=== PATIENT | male | born 1950 | race Caucasian/White ===

== ENCOUNTER 2018-07-02 15:48 | Inpatient (IN) | payer BC, MEDICARE ==
[~2018-07-02 15:48] MED LIST: ASPIRIN 81 MG PO ONE
[2018-07-02] MEDS ORDERED: HEPARIN SODIUM,PORCINE 5,000 UNIT/ML 1 ML VIAL IV PRN (15:58)
[2018-07-02] MEDS ORDERED: NITROGLYCERIN SL TABS 0.4 MG TAB SUBLINGUAL PRN ×2 (15:58→18:50)
[2018-07-02] MEDS ORDERED: SODIUM CHLORIDE 0.9% 1,000 ML IV STA (15:58)
[2018-07-02] MEDS ORDERED: ASPIRIN 81 MG PO STA (15:58)
[2018-07-02] MEDS ORDERED: HEPARIN SODIUM,PORCINE 5,000 UNIT/ML 1 ML VIAL IV ONE (15:58)
--- NOTE | 2018-07-02 16:04 | ED ---
General Adult HPI - General Chief complaint: Chest Pain Stated complaint: Dr Sent/Chest tightness Time Seen by Provider: 07/02/18 15:54 Source: patient, RN notes reviewed, old records reviewed Mode of arrival: ambulatory Limitations: no limitations - History of Present Illness Initial comments: This is a 68-year-old male the ER presenting with chest pain today. Patient has history of hypertension, heart disease, cardiomyopathy. Patient presents today for evaluation regarding the cause of chest pain. Patient states he has family doctor and sent to ER for evaluation. Patient denies any fevers cough or congestion. Patient has had shortness of breath with diaphoresis. Patient continues to chest pain currently here in the emergency room - Related Data Home Medications Medication Instructions Recorded Confirmed Atorvastatin [Lipitor] 10 mg PO DAILY 09/03/15 07/02/18 Lisinopril [Prinivil] 10 mg PO DAILY 09/03/15 07/02/18 Aspirin EC [Ecotrin Low Dose] 81 mg PO DAILY 07/02/18 07/02/18 Furosemide [Lasix] 20 mg PO DAILY 07/02/18 07/02/18 Metoprolol Tartrate [Lopressor] 25 mg PO BID 07/02/18 07/02/18 Travoprost [Travatan Z 0.004%] 1 drop BOTH EYES HS 07/02/18 07/02/18 Allergies Allergy/AdvReac Type Severity Reaction Status Date / Time No Known Allergies Allergy Verified 07/02/18 16:08 Review of Systems ROS Statement: Those systems with pertinent positive or pertinent negative responses have been documented in the HPI. ROS Other: All systems not noted in ROS Statement are negative. Past Medical History Past Medical History: Hypertension, Renal Disease Additional Past Medical History / Comment(s): heart murmur,sob,prostate ca 2012 , kidney stones History of Any Multi-Drug Resistant Organisms: None Reported Past Surgical History: Hernia Repair, Prostate Surgery Additional Past Surgical History / Comment(s): prostatectomy, sheila inguinal hernia repair,lithotripsy Additional Past Anesthesia/Blood Transfusion Reaction / Comment(s): woke up during surgery in the past Past Psychological History: No Psychological Hx Reported Smoking Status: Former smoker Past Alcohol Use History: None Reported Past Drug Use History: None Reported - Past Family History Sister(s) Family Medical History: Cancer Additional Family Medical History / Comment(s): breast Mother Family Medical History: Cancer Additional Family Medical History / Comment(s): breast Father Family Medical History: Cancer Additional Family Medical History / Comment(s): prostate General Exam Limitations: no limitations General appearance: alert, in no apparent distress Head exam: Present: atraumatic, normocephalic, normal inspection Eye exam: Present: normal appearance, PERRL, EOMI. Absent: scleral icterus, conjunctival injection, periorbital swelling ENT exam: Present: normal exam, mucous membranes moist Neck exam: Present: normal inspection. Absent: tenderness, meningismus, lymphadenopathy Respiratory exam: Present: normal lung sounds bilaterally. Absent: respiratory distress, wheezes, rales, rhonchi, stridor Cardiovascular Exam: Present: regular rate, normal rhythm, normal heart sounds. Absent: systolic murmur, diastolic murmur, rubs, gallop, clicks GI/Abdominal exam: Present: soft, normal bowel sounds. Absent: distended, tenderness, guarding, rebound, rigid Extremities exam: Present: normal inspection, full ROM, normal capillary refill. Absent: tenderness, pedal edema, joint swelling, calf tenderness Back exam: Present: normal inspection Neurological exam: Present: alert, oriented X3, CN II-XII intact Psychiatric exam: Present: normal affect, normal mood Skin exam: Present: warm, dry, intact, normal color. Absent: rash Course Vital Signs 07/02/18 15:50 Temperature 97.9 F Pulse Rate 72 Respiratory 18 Rate Blood Pressure 153/85 O2 Sat by Pulse 97 Oximetry - Reevaluation(s) Reevaluation #1: 07/02/18 16:15 The patient's bid writer this patient is coming from office with both abnormal EKG she is, chest pain and inferior wall high. Hypokinesis on ultrasound Reevaluation #2: 07/02/18 16:15 Patient's no acute distress here in emergency room EKG Findings - EKG Comments: EKG Findings:: EKG shows sinus rhythm rate of 73, MT 144, QRS 132, QTc 471 Medical Decision Making - Medical Decision Making 68 male the ER for evaluation, this patient was essay for evasive chest pain history of heart disease history of cardiomyopathy. Patient will be admitted for laboratory tester for evaluation of cause of chest pain Critical Care Time Critical Care Time: Yes Total Critical Care Time: 31 Disposition Clinical Impression: Chest pain, Unstable angina pectoris Disposition: ADMITTED IP TO THIS HOSP Condition: Fair Is patient prescribed a controlled substance at d/c from ED?: No Referrals: Panchito Rivero MD [Primary Care Provider] - 1-2 days
[2018-07-02 16:13] LABS: Basophils % (A) 0 %; Eosinophils # (A) 0.2 k/uL (0-0.7); Eosinophils % (A) 3 %; HCT 42.6 % (39.0-53.0); HGB 14.6 gm/dL (13.0-17.5); Lymphocytes # (A) 2.3 k/uL (1.0-4.8); Lymphocytes % (A) 31 %; MCH 29.8 pg (25.0-35.0); MCHC 34.3 g/dL (31.0-37.0); Mean Platelet Volume 8.8; Monocytes # (A) 0.7 k/uL (0-1.0); Monocytes % (A) 9 %; Neutrophils # (A) 4.1 k/uL (1.3-7.7); Neutrophils % (A) 54 %; Platelet Count 204 k/uL (150-450); RBC 4.89 m/uL (4.30-5.90); RDW 13.6 % (11.5-15.5); WBC 7.6 k/uL (3.8-10.6)
[2018-07-02] MEDS ORDERED: LIDOCAINE 1% INJ 10MG/ML (20 ML MDV) ONE ×2 (16:14→17:30)
[2018-07-02] MEDS ORDERED: fentaNYL (PF) 50 MCG/ML 2 ML AMP ONE (16:15)
[2018-07-02] MEDS ORDERED: MIDAZOLAM 2 MG/2 ML VIAL ONE (16:15)
[2018-07-02] MEDS ORDERED: ASPIRIN 81 MG ONE (16:16)
[2018-07-02] MEDS ORDERED: ASPIRIN 81 MG PO ONE (16:20)
[2018-07-02 16:22] LABS: INR 1.2 (<1.2); Partial Thromboplastin Time 23.6 sec (22.0-30.0); Prothrombin Time 11.4 sec (9.0-12.0)
[2018-07-02] MEDS ORDERED: SODIUM CHLORIDE 0.9% 500 ML IV ONE (16:22)
[2018-07-02 16:25] LABS: Albumin 4.3 g/dL (3.5-5.0); Calcium 9.5 mg/dL (8.4-10.2); Potassium 4.2 mmol/L (3.5-5.1); Total Bilirubin 0.7 mg/dL (0.2-1.3); Total Protein 6.7 g/dL (6.3-8.2)
[2018-07-02] MEDS ORDERED: MIDAZOLAM 2 MG/2 ML VIAL IV ONE (16:40)
[2018-07-02] MEDS ORDERED: LIDOCAINE 1% INJ 10MG/ML (20 ML MDV) SQ ONE ×2 (16:42→17:39)
[2018-07-02] MEDS: fentaNYL (PF) 50 MCG/ML 2 ML AMP IV ONE ×3 (16:43→17:39)
[2018-07-02 17:04] LABS: Creatine Kinase MB 8.1 ng/mL (0.0-2.4)
[2018-07-02 17:05] LABS: Troponin I 1.23 ng/mL (0.000-0.034)
[2018-07-02] MEDS: LIDOCAINE 1% INJ 10MG/ML (20 ML MDV) SQ ONE ×2 (17:38→18:30)
[2018-07-02] MEDS ORDERED: BIVALIRUDIN BOLUS 250 MG/50 ML IV ONE (17:43)
[2018-07-02] MEDS ORDERED: BIVALIRUDIN 250 MG in SODIUM CHLORIDE 0.9% 50 ML IV ONE (17:44)
[2018-07-02] MEDS ORDERED: IOPAMIDOL-370 125ML BTL INJ ONE ×2 (17:58)
[2018-07-02] MEDS ORDERED: IOPAMIDOL-370 100ML BTL INJ ONE ×3 (18:21→18:35)
[2018-07-02] MEDS ORDERED: TICAGRELOR 90 MG TAB ONE (18:34)
[2018-07-02] MEDS ORDERED: TICAGRELOR 90 MG TAB PO ONE (18:37)
[2018-07-02] MEDS ORDERED: ZOLPIDEM 5 MG TAB PO PRN (18:50)
[2018-07-02] MEDS ORDERED: RX INFO: IV CONTRAST WAS GIVEN 1 EACH MISC MISCELLANE PRN (18:50)
[2018-07-02] MEDS ORDERED: ATROPINE SULFATE 0.1 MG/ML 10ML SYRINGE IV PRN (18:50)
[2018-07-02] MEDS ORDERED: MAG HYDROX/AL HYDROX/SIMETH 30 ML CUP PO PRN (18:50)
[2018-07-02] MEDS: HEPARIN SOD,PORK IN 0.45% NACL 25,000 UNIT in 0.45% NACL 1 500ML.BAG IV SCH (19:56)
--- NOTE | 2018-07-02 20:31 | CONS ---
CONSULTATION CHIEF COMPLAINT: Chest pain. HISTORY OF PRESENT ILLNESS: Leander is a 68-year-old gentleman with history of hypertrophic cardiomyopathy, hypertension, dyslipidemia, who presented to my office today complaining of intermittent episodes of chest pressure. He stated that he developed this chest discomfort and shortness of breath with activity over the last several days. It came on initially while he was mowing the lawn and subsequently even with very minimal activity. He had a moderate intensity shortness of breath and mild intensity chest pain and the pain had radiated to the right arm. I did an EKG on him that showed sinus rhythm with poor R-wave progression suggestive of anteroseptal [place] with right bundle branch block and extensive new ST-T wave changes involving anterolateral leads. I performed an echocardiogram on him that showed new apical hypokinesis. Due to this, I advised him to undergo emergent cardiac catheterization. The patient had been explained of risks, benefits and alternatives. I brought him from my office to the ER and from there to the lab systems analyst. PAST MEDICAL HISTORY: Significant for hypertrophic cardiomyopathy, hypertension, dyslipidemia. ALLERGIES: As charted. FAMILY HISTORY: Negative for premature coronary artery disease. SOCIAL HISTORY: Negative for current smoking, ETOH abuse or history of drug abuse. REVIEW OF SYSTEMS: HEENT is unremarkable. Cardiac as described above. Respiratory as described above. GI negative. Genitourinary: Negative. Allergy/Immunology: Negative. Skin: Negative. Musculoskeletal significant for arthritis. Psychosocial negative. Derm: Negative. Constitutional: Negative. Oncological: Negative. ENDOCRINE: Negative. PSYCHOSOCIAL: Negative. Rest of the system review is not relevant. EXAM: Comfortable at rest. Vital signs are stable. There is no jugular venous distention. Carotid upstroke is normal. There is no bruit. Chest exam reveals good air entry bilaterally. Heart exam reveals first and second heart sounds and S4 is soft. S4 is heard. Abdomen is soft. Exam of extremities did not reveal any edema. Peripheral pulses are felt. Femoral pulses are palpable and normal. Radial pulses are normal. His home medications include Lipitor 10 mg daily, lisinopril 10 mg daily, metoprolol 25 mg daily, aspirin 81 mg daily, Lasix 20 mg daily. EKG is as described above. Echocardiogram shows apical hypokinesis. ASSESSMENT: 1. Unstable angina. 2. Hypertrophic cardiomyopathy. 3. Hypertension. 4. Dyslipidemia. PLAN: The patient will undergo emergent cardiac catheterization with a view to performing angioplasty. He understands risks benefits. Labs will be done in the ER. MARK / NGHIAN: [id number] /
--- NOTE | 2018-07-02 20:37 | CC ---
CARDIAC CATHETERIZATION REPORT INDICATION: Unstable angina. PROCEDURE NOTE: After obtaining informed consent, left heart catheterization and coronary angiogram were performed via the right femoral artery using standard Georgette catheters. The patient tolerated the procedure well without any obvious immediate complications. A femoral angiogram was performed. The patient received moderate conscious sedation. Total sedation time was 15 minutes. FINDINGS: HEMODYNAMICS: Left ventricular end-diastolic pressure is 12 to 14 mm. There is no significant gradient across aortic valve. LEFT VENTRICULOGRAM: Left ventriculogram is not performed. ANGIOGRAPHIC DATA: LEFT MAIN CORONARY ARTERY: 1. LEFT MAIN CORONARY ARTERY: Left main coronary artery is a normal-sized vessel and is free of stenosis. Divides into left anterior descending coronary artery and circumflex coronary artery. 2. CIRCUMFLEX CORONARY ARTERY and its branches are free of significant stenosis. 3. LEFT ANTERIOR DESCENDING CORONARY ARTERY: LAD is a large vessel that gives off large caliber diagonal branch and it is just proximal to the origin of the diagonal branch. He has a focal 95% stenosis. 4. RIGHT CORONARY ARTERY: Right coronary artery is a large dominant vessel that shows some moderate stenosis in the proximal part. At its worst, it seems to be a 50-60% stenosis. CONCLUSIONS: 1. 90% stenosis involving the LAD just proximal to the origin of a large caliber diagonal branch. 2. 50-60% stenosis involving dominant right coronary artery. PLAN: Patient will undergo angioplasty with stent placement of the LAD. Dr. Teodora Hall the on-call stogie packer will perform this. MMODL / IJN: [id number] /
[2018-07-02] MEDS ORDERED: HYDROcodone/APAP 5-325MG 1 EACH TAB PO PRN (20:51)
[2018-07-02] MEDS ORDERED: ACETAMINOPHEN TAB 500 MG TAB PO PRN (20:51)
[2018-07-02] MEDS ORDERED: ALPRAZolam 0.25 MG TAB PO PRN (20:51)
[2018-07-02] MEDS ORDERED: LISINOPRIL 5 MG TAB PO SCH (21:00)
[2018-07-02] MEDS: LATANOPROST 0.005% OPHTH DROPS 2.5 ML BTL BOTH EYES SCH (21:31)
[2018-07-02] MEDS: ATORVASTATIN 80 MG TAB PO SCH (21:31)
[2018-07-02] MEDS: SODIUM CHLORIDE 0.9% 1,000 ML IV SCH (21:34)
--- NOTE | 2018-07-02 22:19 | HP ---
HISTORY AND PHYSICAL CHIEF COMPLAINT: Chest discomfort. HISTORY OF PRESENT ILLNESS: This 68-year-old gentleman with a past medical history of multiple medical problems including hypertension, renal disease, history of cardiac murmur, history of nephrolithiasis, hernia repair being followed by Dr. Rivero in the outpatient setting, was complaining of chest pressure/discomfort for the last 2 days with increasing difficulty. The patient came to [facility]. Troponins elevated. EKG showed ST-T changes. Patient underwent cardiac catheterization by cardiology with LAD stenting, also. There is no history of fever, rigors or chills. No history of headache, loss of consciousness . No history of hematochezia, melena or shortness of breath. PAST MEDICAL HISTORY: Hypertension, renal disease, heart murmurs, hernia repair, prostate surgery. MEDICATIONS ARE: 1. Travatan 0.34497% 1 drop both eyes q.h.s. 2. Lopressor 25 mg b.i.d. 3. Prinivil 10 mg daily. 4. Lasix 20 mg daily. 5. Lipitor 10 mg daily. 6. Ecotrin 81 mg daily. ALLERGIES: None. FAMILY HISTORY: History of breast cancer in the family. SOCIAL HISTORY: Previous history of smoking. Occasional alcohol intake. REVIEW OF SYSTEMS: ENT: No diminished vision. No diminished hearing. CARDIOVASCULAR system: As mentioned earlier. RESPIRATION: As mentioned earlier. GI: No nausea or vomiting. no dysuria or hematuria. NERVOUS SYSTEM: No numbness or weakness. ALLERGY/IMMUNOLOGY: As mentioned earlier. HEMATOLOGY/ONCOLOGY: No history of anemia. ENDOCRINE: No history of diabetes or hypothyroidism. CONSTITUTIONAL: As mentioned earlier. DERMATOLOGY: Negative. RHEUMATOLOGY: Negative. PSYCHIATRY: As mentioned earlier. PHYSICAL EXAMINATION: GENERAL: The patient is alert, oriented x3. VITAL SIGNS: Blood pressure 140/58, respirations 18, temperature 97.9, pulse ox 97% on 2 L. HEENT is conjunctivae normal. Oral mucosa moist. Neck is no jugular venous distention. No carotid bruit. No lymph node enlargement. CARDIOVASCULAR SYSTEM: S1, S2. S3 present. RESPIRATORY: Breath sounds diminished in the bases. No rhonchi. No crackles. ABDOMEN: Soft, nontender. No mass palpable. LEGS: No edema and no swelling. CENTRAL NERVOUS SYSTEM: Higher functions as mentioned earlier. Moves all 4 limbs. No focal motor or sensory deficits. LYMPHATICS: No lymph nodes palpable in the neck, axillae or groin. SKIN no ulcer, rash or bleeding. LABS: CBC within normal limits. INR 1.2. Troponin is 1.23. EKG ST-T changes. ASSESSMENT: 1. Acute non ST-segment elevation infarction status post cardiac catheterization and LAD stenting. 2. History of hypertension. 3. History of nephrolithiasis. 4. History of renal disease. 5. History of hernia repair. 6. History of prostate surgery. 7. Remote history of nicotine dependence. RECOMMENDATIONS AND DISCUSSION: This 68-year-old gentleman who presented with multiple complex medical issues, we will monitor the patient closely, continue the current medications, management and symptomatic treatment. Otherwise, at this time, I recommend antiplatelet agents , beta blockers and RADHA inhibitors. Closely follow with Cardiology. DVT prophylaxis. Guarded prognosis because of multiple complex medical issues. Further recommendations to follow. A copy of dictating is forwarded to Dr. Rivero who is the primary physician. MMODL / IJN: [id number] / CHRISTI
--- NOTE | 2018-07-02 22:34 | PTCA ---
PERCUTANEOUSTRANS CORORONARY ANGIOGRAPHY DATE OF SERVICE: 07/02/2018. PROCEDURE: Percutaneous transluminal coronary angioplasty and stenting of a complex bifurcation lesion involving left anterior descending coronary artery in its midportion and a major diagonal branch. Drug-eluting stent was deployed in the left anterior descending and kissing balloon technique was used to dilate both vessels. Provisional stenting was performed without need for additional stent in the diagonal. PERFORMED BY: Dr. Teodora Hall. Moderate conscious sedation time was 60 minutes. CLINICAL INFORMATION: Mr. Leander Hoffmann is a patient of Dr. Mckee, who was evaluated by him in the office today with new onset chest pain and EKG changes suggestive of ischemia in the LAD distribution. He has history of hypertension and probably hyperlipidemia and hypertrophic cardiomyopathy. He underwent cardiac cath performed by Dr. Mckee from the right femoral approach which revealed a 95% LAD lesion in the midportion just after a major septal branch and also involving a diagonal branch at its origin. The patient was advised percutaneous intervention after discussion regarding a surgical option. I spoke to the patient and family, explained to them the risks involved. They were both receptive and wished to proceed with the PCI. PROCEDURE NOTE: The existing 6-Kittitian introducer in the right femoral artery was exchanged over a wire under local anesthesia and strict aseptic precautions to an 8-Kittitian introducer. I used a standard left Georgette guide catheter of 8-Kittitian caliber to cannulate the left coronary artery. A Whisper wire was used to cross the lesion and wire was kept in the diagonal branch. An additional whisper wire was used to cross the lesion in the LAD and wire was kept distally. I performed predilatation of the LAD lesion with a 2.5 caliber 12 mm NC Trek balloon at 12 atmospheres for 30 seconds and an 8 mm 2.25 caliber NC Trek balloon was used to dilate the diagonal lesion for 30 seconds. I then deployed a 2.75 caliber 15 mm long Xience stent in the diagonal branch and the and this stent was deployed at 12 atmospheres. I then used a 3.0 caliber 8 mm NC Trek balloon and pre- dilated the proximal half of the stent to perform proximal vessel optimization and this balloon was dilated up to 12 atmospheres. I then performed a wire exchange. A new wire was advanced and positioned in the diagonal branch from the distal aspect at the site of bifurcation. I then advanced a 2.25 caliber 12 mm NC Trek balloon into the diagonal branch and a 2.5 caliber 12 mm balloon into the LAD. Both balloons were positioned and a kissing balloon dilatation was performed. Initially I dilated the diagonal balloon and about 10 seconds later, I dilated the LAD balloon and kissing balloon dilatation was performed for 45 seconds. The patient had mild chest discomfort and significant new EKG changes. Excellent angiographic result was achieved without complication. There was brisk flow in both vessels noted without any compromise. Excellent angiographic result was achieved without complication. The patient received Angiomax bolus and infusion as per protocol. He also received 180 mg of Brilinta. The sheath was then taken out and Perclose device used to secure hemostasis and he was sent to the room in a stable condition. Results were discussed with the patient and . I expect the patient to be discharged if he remains stable in the next 24 hours. MMBOB / NGHIAN: [id number] /
[2018-07-02 23:55] LABS: Creatine Kinase MB 6.5 ng/mL (0.0-2.4); Troponin I 1.42 ng/mL (0.000-0.034)
[2018-07-03 01:28] LABS: Appearance,Urine Clear (Clear); Bilirubin,Urine Negative (Negative); Blood,Urine Negative (Negative); Color,Urine Yellow; Glucose,Urine (UA) Negative (Negative); Ketones,Urine Negative (Negative); Leukocyte Esterase,Urine Negative (Negative); Nitrite,Urine Negative (Negative); Protein,Urine Negative (Negative); Urobilinogen,Urine <2.0 mg/dL (<2.0)
[2018-07-03 01:33] LABS: Specific Gravity,Urine 1.046 (1.001-1.035)
[2018-07-03 04:34] LABS: Basophils % (A) 0 %; Eosinophils # (A) 0.1 k/uL (0-0.7); Eosinophils % (A) 2 %; HCT 37.6 % (39.0-53.0); HGB 12.8 gm/dL (13.0-17.5); Lymphocytes % (A) 16 %; MCH 29.5 pg (25.0-35.0); MCHC 34.1 g/dL (31.0-37.0); MCV 86.6 fL (80.0-100.0); Mean Platelet Volume 9.2; Monocytes # (A) 0.5 k/uL (0-1.0); Monocytes % (A) 8 %; Neutrophils # (A) 4.4 k/uL (1.3-7.7); Neutrophils % (A) 73 %; Platelet Count 170 k/uL (150-450); RBC 4.34 m/uL (4.30-5.90); RDW 13.5 % (11.5-15.5)
[2018-07-03 04:48] LABS: Anion Gap 5 mmol/L; Blood Urea Nitrogen 22 mg/dL (9-20); Calcium 8.7 mg/dL (8.4-10.2); Carbon Dioxide 24 mmol/L (22-30); Chloride 108 mmol/L (98-107); Cholesterol 118 mg/dL (<200); Glucose 104 mg/dL (74-99); HDL Cholesterol 30 mg/dL (40-60); LDL Cholesterol,Calculated 58 mg/dL (0-99); Potassium 4.4 mmol/L (3.5-5.1); Sodium 137 mmol/L (137-145); Triglycerides 150 mg/dL (<150)
[2018-07-03 05:10] LABS: Creatine Kinase MB 7.6 ng/mL (0.0-2.4); Troponin I 1.62 ng/mL (0.000-0.034)
[2018-07-03] MEDS: PANTOPRAZOLE 40 MG TABLET PO SCH (06:16)
[2018-07-03] MEDS: TICAGRELOR 90 MG TAB PO SCH ×2 (08:11→21:32)
[2018-07-03] MEDS: LISINOPRIL 10 MG TAB PO SCH (08:11)
[2018-07-03] MEDS: ASPIRIN 81 MG PO SCH (08:11)
--- NOTE | 2018-07-03 08:19 | XR ---
EXAMINATION TYPE: XR chest 1V portable DATE OF EXAM: 07/03/2018 CLINICAL HISTORY: Difficulty breathing and CHF. TECHNIQUE: Single AP portable frontal view of the chest is obtained. COMPARISON: None FINDINGS: There is left basilar linear scarring and/or atelectasis. There is right apical scarring. No suspicious focal airspace opacity, pleural effusion, or pneumothorax is seen bilaterally. Cardiac silhouette size is within normal limits with atherosclerotic change in thoracic aorta. Osseous struct ures are intact. IMPRESSION: Right apical scarring and left basilar linear scarring and/or atelectasis. No evidence of overt failure.
[2018-07-03] MEDS ORDERED: ASPIRIN 325 MG TAB PO SCH (09:00)
[2018-07-03 09:53] VITALS: BMI 28.5
[2018-07-03] MEDS: SODIUM CHLORIDE 0.9% 1,000 ML IV SCH (13:08)
--- NOTE | 2018-07-03 15:21 | P.PN ---
Subjective Progress Note Date: 07/03/18 This is a 68-year-old gentleman with history of hypertrophic cardiomyopathy, hypertension, hyperlipidemia, who presented to the hospital with symptoms of chest pressure. An echo with Doppler study was performed which revealed new apical hypokinesia and patient was noted to have extensive ST-T wave changes on his EKG. For this reason he was taken to the cardiac catheterization lab by Dr. Mckee and subsequently underwent angioplasty and stenting of the LAD and diagonal branch by Dr. Wale Hall. Chest x-ray shows right apical scarring and left basilar linear scarring. Blood pressure 140/70 with a heart rate in the 70s, 94% on room air. White blood cell count 6.0, hemoglobin 12.8, platelet count 170. Sodium 137, potassium 4.4, BUN 22, creatinine 0.9. Objective - Vital Signs Vital signs: Vital Signs Temp 97.0 F L 07/03/18 11:54 Pulse 65 07/03/18 11:54 Resp 16 07/03/18 11:54 BP 148/77 07/03/18 11:54 Pulse Ox 97 07/03/18 11:54 Intake & Output 07/02/18 07/03/18 07/03/18 18:59 06:59 18:59 Intake Total 340 750 Output Total 400 Balance 340 350 Weight 91.626 kg 90.1 kg 90.1 kg Intake: IV 340 750 Sodium Chloride 0.9% 1, 750 000 ml @ 75 mls/hr IV . [id number] [facility] Rx#:[id number] Output: Urine 400 - Exam PHYSICAL EXAMINATION: GENERAL: 68-year-old gentleman in no acute distress at the time of my examination HEENT: Head is atraumatic, normocephalic. Pupils equal, round. Sclera anicteric. Conjunctiva are clear. Mucous membranes of the mouth are moist. Neck is supple. There is no elevated jugular venous pressure.] bruit is heard. HEART EXAMINATION: Heart S1, S2 normal. No murmur or gallop heard. CHEST EXAMINATION: Lungs are clear to auscultation and precussion. No chest wall tenderness is noted on palpation or with deep breathing. ABDOMEN: Soft, nontender. Bowel sounds are heard. No organomegaly noted. EXTREMITIES: 2+ peripheral pulses with no evidence of peripheral edema and no calf tenderness noted. Right groin ecchymotic, no hematoma, good distal pulse. NEUROLOGIC patient is awake, alert and oriented ?-3. . - Labs CBC & Chem 7: 07/03/18 04:22 07/03/18 04:22 Labs: Abnormal Lab Results - Last 24 Hours (Table) 07/02/18 07/02/18 07/02/18 Range/Units 15:55 15:55 15:55 Hgb (13.0-17.5) gm/dL Hct (39.0-53.0) % INR 1.2 H (<1.2) Chloride (98-107) mmol/L BUN 26 H (9-20) mg/dL Glucose (74-99) mg/dL Total Creatine Kinase 216 H (55-170) U/L CK-MB (CK-2) 8.1 H* (0.0-2.4) ng/mL Troponin I 1.230 H* (0.000-0.034) ng/mL Triglycerides (<150) mg/dL HDL Cholesterol (40-60) mg/dL Ur Specific Pillow (1.001-1.035) 07/02/18 07/03/18 07/03/18 Range/Units 22:56 00:45 04:22 Hgb (13.0-17.5) gm/dL Hct (39.0-53.0) % INR (<1.2) Chloride (98-107) mmol/L BUN (9-20) mg/dL Glucose (74-99) mg/dL Total Creatine Kinase (55-170) U/L CK-MB (CK-2) 6.5 H* 7.6 H* (0.0-2.4) ng/mL Troponin I 1.420 H* 1.620 H* (0.000-0.034) ng/mL Triglycerides (<150) mg/dL HDL Cholesterol (40-60) mg/dL Ur Specific Pillow 1.046 H (1.001-1.035) 07/03/18 07/03/18 Range/Units 04:22 04:22 Hgb 12.8 L (13.0-17.5) gm/dL Hct 37.6 L (39.0-53.0) % INR (<1.2) Chloride 108 H (98-107) mmol/L BUN 22 H (9-20) mg/dL Glucose 104 H (74-99) mg/dL Total Creatine Kinase (55-170) U/L CK-MB (CK-2) (0.0-2.4) ng/mL Troponin I (0.000-0.034) ng/mL Triglycerides 150 H (<150) mg/dL HDL Cholesterol 30 L (40-60) mg/dL Ur Specific Pillow (1.001-1.035) Assessment and Plan Plan: Assessment and plan #1 status post angioplasty and stenting of the LAD and diagonal #2 hypertrophic cardiomyopathy #3 hyperlipidemia #4 hypertension Plan EKG shows normal sinus rhythm with diffuse ST-T wave changes in the anterolateral leads. We will continue the patient on aspirin 81 mg daily, Lipitor 80 mg daily, lisinopril 10 mg daily, Brilinta 90 mg one tablet by mouth twice a day. Add a beta priti to the patient's medication regime. Activity as tolerated today. Plan for possible discharge home in 24 hours if stable. DNP note has been reviewed, I agree with a documented findings and plan of care. Patient was seen and examined.
[2018-07-03] MEDS: HEPARIN SOD,PORK IN 0.45% NACL 25,000 UNIT in 0.45% NACL 1 500ML.BAG IV SCH (15:26)
--- NOTE | 2018-07-03 17:44 | PN ---
PROGRESS NOTE DATE OF SERVICE: 07/03/2018 This 65-year-old gentleman who was admitted with acute non ST elevation myocardial infarction had cardiac catheterization, LAD stenting. No chest pain. No palpitations. No fever. Cardiology is following the patient closely. Chest x-ray showed some linear scarring and atelectasis. No shortness of breath. No hematochezia, melena. PHYSICAL EXAM: Alert and oriented x3. Pulse 65, blood pressure 140/77, respirations 16, temperature 97 degrees, pulse ox 96% on room air. HEENT: Conjunctivae normal. Oral mucosa moist. NECK: No jugular venous distention. No carotid bruits. No lymph node enlargement. CARDIOVASCULAR: S1, S2 muffled. No S3, S4. RESPIRATORY: Breath sounds diminished in the bases. No rhonchi. No crackles. ABDOMEN: Soft, nontender. LEGS: No edema. NERVOUS SYSTEM: No focal deficits. LABS: Hemoglobin 12.8. Sodium 137, troponin 1.620. ASSESSMENT: 1. Acute non ST-segment elevation myocardial infarction, status post cardiac catheterization and left anterior descending stenting. 2. History of hypertension. 3. History of nephrolithiasis. 4. History of renal disease. 5. History of hernia repair. 6. History of prostate surgery. 7. Remote history of nicotine dependence. RECOMMENDATIONS AND DISCUSSION: Recommend to continue current medical management. Continue with monitoring and symptomatic treatment. Otherwise at this time, I would recommend continue with the current medications, continue with beta blockers, antiplatelet agents, closely follow with Cardiology. Further recommendations to follow. MMODL / IJN: [id number] /
[2018-07-03] MEDS: ATORVASTATIN 80 MG TAB PO SCH (21:32)
[2018-07-03] MEDS: LATANOPROST 0.005% OPHTH DROPS 2.5 ML BTL BOTH EYES SCH (21:32)
[2018-07-03] MEDS: METOPROLOL TARTRATE 25 MG TAB PO SCH (21:33)
[2018-07-04] MEDS: PANTOPRAZOLE 40 MG TABLET PO SCH (06:00)
[2018-07-04 06:22] LABS: Mean Platelet Volume 8.3; Platelet Count 174 k/uL (150-450)
[2018-07-04] MEDS: LISINOPRIL 10 MG TAB PO SCH (08:38)
[2018-07-04] MEDS: ASPIRIN 81 MG PO SCH (08:38)
[2018-07-04] MEDS: METOPROLOL TARTRATE 25 MG TAB PO SCH (08:38)
[2018-07-04] MEDS: TICAGRELOR 90 MG TAB PO SCH (08:39)
[2018-07-04 09:00] VITALS: RESP 18; TEMP 97.2
--- NOTE | 2018-07-04 11:16 | P.PN ---
Subjective Progress Note Date: 07/04/18 This is a 68-year-old gentleman with history of hypertrophic cardiomyopathy, hypertension, hyperlipidemia, who presented to the hospital with symptoms of chest pressure. An echo with Doppler study was performed which revealed new apical hypokinesia and patient was noted to have extensive ST-T wave changes on his EKG. For this reason he was taken to the cardiac catheterization lab by Dr. Mckee and subsequently underwent angioplasty and stenting of the LAD and diagonal branch by Dr. Wale Hall. Chest x-ray shows right apical scarring and left basilar linear scarring. Blood pressure 140/70 with a heart rate in the 70s, 94% on room air. White blood cell count 6.0, hemoglobin 12.8, platelet count 170. Sodium 137, potassium 4.4, BUN 22, creatinine 0.9. 07/04/2018 Patient was seen and examined this morning, denies any chest pain or difficulty in breathing. He states that he slept very well last night. Hemodynamically he is stable. Objective - Vital Signs Vital signs: Vital Signs Temp 97.2 F L 07/04/18 08:00 Pulse 75 07/04/18 08:00 Resp 18 07/04/18 08:00 BP 150/80 07/04/18 08:00 Pulse Ox 96 07/04/18 08:00 Intake & Output 07/03/18 07/04/18 07/04/18 18:59 06:59 18:59 Intake Total 230 30 Output Total 1350 Balance -1120 30 Weight 90.1 kg 89.6 kg Intake: IV 30 0.9 30 Intake, IV Titration 0 Amount Sodium Chloride 0.9% 1, 0 000 ml @ 75 mls/hr IV . [id number] [facility] Rx#:[id number] Oral 230 Output: Urine 1350 - Exam PHYSICAL EXAMINATION: GENERAL: 68-year-old gentleman in no acute distress at the time of my examination HEENT: Head is atraumatic, normocephalic. Pupils equal, round. Sclera anicteric. Conjunctiva are clear. Mucous membranes of the mouth are moist. Neck is supple. There is no elevated jugular venous pressure.] bruit is heard. HEART EXAMINATION: Heart S1, S2 normal. No murmur or gallop heard. CHEST EXAMINATION: Lungs are clear to auscultation and precussion. No chest wall tenderness is noted on palpation or with deep breathing. ABDOMEN: Soft, nontender. Bowel sounds are heard. No organomegaly noted. EXTREMITIES: 2+ peripheral pulses with no evidence of peripheral edema and no calf tenderness noted. Right groin ecchymotic, no hematoma, good distal pulse. NEUROLOGIC patient is awake, alert and oriented ?-3. . - Labs CBC & Chem 7: 07/04/18 05:39 07/03/18 04:22 Assessment and Plan Plan: Assessment and plan #1 status post angioplasty and stenting of the LAD and diagonal #2 hypertrophic cardiomyopathy #3 hyperlipidemia #4 hypertension Plan From cardiology's perspective, patient may be able to be discharged home today. He will be discharged home on aspirin 81 mg daily, Lipitor 80 mg daily, lisinopril 10 mg daily, metoprolol 25 mg one tablet by mouth twice a day, Brilinta 90 mg one tablet by mouth twice a day, and sublingual nitroglycerin as needed for chest pain. DNP note has been reviewed, I agree with a documented findings and plan of care. Patient was seen and examined.
[2018-07-04 11:36] VITALS: BP 134/75; PULSE 60
--- NOTE | 2018-07-04 22:21 | DS ---
DISCHARGE SUMMARY FINAL DIAGNOSES: 1. Acute non-ST elevation myocardial infarction, status post cardiac catheterization and left anterior descending stenting. 2. History of hypertension. 3. History of nephrolithiasis. 4. History of renal disease. 5. History of hernia repair. 6. History of prostate disorder. 7. Remote history of nicotine dependence. DISCHARGE DISPOSITION: The patient will be discharged in stable condition with guarded prognosis and discharged when cleared by Cardiology. HISTORY OF PRESENT ILLNESS: This 65-year-old gentleman with a past medical history of multiple medical problems as mentioned earlier, being followed by Dr. Rivero in the outpatient setting, was admitted with features of acute non-ST elevation myocardial infarction. Patient underwent cardiac catheterization and stenting, also. Patient improved significantly. EXAM: Vitals are stable. CARDIOVASCULAR: S1, S2 normal. Abdomen is soft. NERVOUS SYSTEM: No focal deficit. The patient discharged in stable condition with guarded prognosis after clearance by Cardiology. DISCHARGE ADVICE AND MEDICATIONS: 1. Diet is cardiac diet. 2. Activity limited until followup. 3. Follow up with Dr. Rivero and Dr. Mak in 2-3 days. 4. Follow up with Dr. Mckee is recommended. 5. Medications are: a. Ecotrin 81 mg p.o. daily. b. Lasix 20 mg p.o. daily. c. Prinivil 10 mg p.o. daily. d. Lopressor 25 mg p.o. b.i.d. e. Travatan 1 drop both eyes. f. Lipitor 80 mg q.h.s. g. Nitro 0.4 sublingual p.r.n. h. Brilinta 90 mg p.o. b.i.d. Once again, the patient will be discharged in stable condition with guarded prognosis. MMODL / IJN: [id number] /
== END 2018-07-04 14:52 | disposition home health service (06) | DRG 247 ==
LOC: EC 15:48 → 6SEL 15:58
PROVIDERS: ADMIT Hospitalist; ATTEND Hospitalist
PROC: B2111ZZ Fluoroscopy of Multiple Coronary Arteries using Low Osmolar Contrast (ICD-10-PCS; 2018-07-02)
PROC: 027034Z Dilation of Coronary Artery, One Artery with Drug-eluting Intraluminal Device, Percutaneous Approach (ICD-10-PCS; principal; 2018-07-02 16:10)
PROC: 4A023N7 Measurement of Cardiac Sampling and Pressure, Left Heart, Percutaneous Approach (ICD-10-PCS; 2018-07-02 16:10)
DX: I21.4 Non-ST elevation (NSTEMI) myocardial infarction (principal); I42.2 Other hypertrophic cardiomyopathy; J98.11 Atelectasis; E78.5 Hyperlipidemia, unspecified; I10 Essential (primary) hypertension; R01.1 Cardiac murmur, unspecified; I45.10 Unspecified right bundle-branch block; I25.10 Atherosclerotic heart disease of native coronary artery without angina pectoris; Z79.899 Other long term (current) drug therapy; Z79.82 Long term (current) use of aspirin; Z87.891 Personal history of nicotine dependence; Z87.442 Personal history of urinary calculi; Z85.46 Personal history of malignant neoplasm of prostate; Z90.79 Acquired absence of other genital organ(s); Z80.3 Family history of malignant neoplasm of breast; Z80.42 Family history of malignant neoplasm of prostate
CPT/HCPCS: 36415; 71045; 80048; 80053; 80061; 81003; 82550; 82553; 83690; 83735; 83880; 84484; 85025; 85049; 85610; 85730; 93005; 93458; 99291